=== PATIENT | female | born 1980 | race Caucasian/White ===

== ENCOUNTER 2020-11-22 16:03 | Emergency (ER) | payer OTHER, SELFPAY ==
--- NOTE | ~2020-11-22 | US_ITS ---
EXAMINATION: US venous doppler [facility] EXAM DATE: 11/22/2020 17:01 INDICATION: Left lower extremity pain, redness, swelling. Symptoms one week. Bruising today. TECHNIQUE: Multiple grayscale, color flow and Doppler images of the left lower extremity deep venous system were obtained and reviewed. There is no prior study for comparison. FINDINGS: The left common femoral, femoral and profunda veins demonstrate normal color flow, respirat ory variation, augmentation and compressibility. Compressibility, color flow confirmed within the le ft popliteal, posterior tibial, peroneal, and greater saphenous veins. Within the left calf posterior musculature there is a focal heterogeneous hypoechoic avascular region most consistent with intramuscular hematoma, measuring 8.5 x 5.2 x 2.1 cm. Recommend clinical follow -up to resolution. IMPRESSION: 1. No left lower extremity deep venous thrombosis. 2. Intramuscular calf focal abnormality most likely hematoma. Recommend clinical follow-up to resolu tion. Reviewed, dictated and finalized at location A. IMPRESSION: 1. No left lower extremity deep venous thrombosis. 2. Intramuscular calf focal abnormality most likely hematoma. Recommend clinic al follow-up to resolution.
[2020-11-22 16:18] VITALS: BP 154/96; PULSE 110; RESP 16; TEMP 36.9; O2SAT 100
--- NOTE | 2020-11-22 16:52 | ED.GENADULT ---
HPI - General Adult General Chief complaint: Extremity Problem,Nontraumatic Stated complaint: DVT L Calf Time Seen by Provider: 11/22/20 16:51 History of Present Illness HPI narrative: Patient is a 40-year-old female otherwise healthy who comes emergency room today to rule out DVT in left calf. Patient reports she has had left calf pain for about 1 week now and seems to be getting worse and there is some swelling and she recently noticed some ecchymosis. Reports she has been sitting a lot recently. She is not on blood thinners. She says that a couple weeks ago she was pushing something very heavy and she did have some tightness in both calfs after this, denies any other mechanism of injury. No numbness or tingling. No fevers. Related Data Allergies Allergy/AdvReac Type Severity Reaction Status Date / Time No Known Allergies Allergy Unknown Verified 11/22/20 17:17 Review of Systems Constitutional: Constitutional: Reports as per HPI, Denies fever(s), Denies night sweats and Denies weakness Cardiovascular: Cardiovascular: Denies chest pain, Denies edema, Denies leg edema, Denies dyspnea and Denies orthopnea Respiratory: Respiratory: Denies cough and Denies dyspnea Gastrointestinal: Gastrointestinal: Denies abdominal pain, Denies constipation, Denies diarrhea, Denies nausea and Denies vomiting Musculoskeletal: Musculoskeletal: Denies abnormal gait, Denies back pain, Denies numbness and Denies tingling Comments: See HPI for left calf pain. Neurologic: Denies Abnormal speech present, Denies abnormal gait, Denies numbness, Denies tingling and Denies weakness Psychiatric: Psychiatric: Denies homicidal ideation and Denies suicidal ideation [facility] Past Medical History Medical History Acute bacterial conjunctivitis of both eyes Dietary counseling and surveillance (08/23/18) Elevated CK Encounter for screening for lipoid disorders Essential (primary) hypertension Ganglion cyst of foot Hypothyroidism, unspecified Morbid (severe) obesity due to excess calories Polycystic ovarian syndrome Family History Family History Father Hypertension Mother Hypertension Hyperlipidemia Sibling No problems noted. 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 HENMT: Head: normal to inspection, normocephalic and atraumatic Ears: external ears normal General nose exam: Normal external nose present Eyes: Pupils: Equal, round and reactive pupils present EOM: EOMs intact bilaterally Neck: Neck: normal visual inspection Chest: Chest palpation & inspection: normal inspection of the chest and no tenderness Resp: Effort & Inspection: normal respiratory effort and able to speak in complete sentences Auscultation: clear to auscultation bilaterally Cardio: Rate: regular rate Rhythm: regular rhythm GI: Inspection: normal to inspection GI Palp: No abdominal tenderness : General: Yes no CVA tenderness Back/Spine/Pelvis: Back: no CVA tenderness Skin: General skin exam: normal color and no rashes or lesions noted Lesions: no lesions Neuro: General: patient oriented x3, no focal motor deficits and CN's II-XI intact bilaterally Cranial nerves: Yes Equal, round and reactive pupils present Speech: No Abnormal speech present Extrem: General: normal to inspection and full ROM Other: Tender to palpa
[2020-11-22 17:59] VITALS: BP 145/100; PULSE 90; RESP 18; O2SAT 100
== END 2020-11-22 18:01 | disposition home or self-care (01) ==
PROVIDERS: Emergency Provider Emergency Medicine; PCP Family Medicine
DX: S86.912A Strain of unspecified muscle(s) and tendon(s) at lower leg level, left leg, initial encounter (principal); X58.XXXA Exposure to other specified factors, initial encounter
CPT/HCPCS: 93971; 99284